=== PATIENT | female | born 1955 | race Caucasian/White ===

== ENCOUNTER 2017-12-10 18:41 | Emergency (ER) | payer OTHER ==
[2017-12-10 18:46] VITALS: TEMP 98.6; BMI 21.6
--- NOTE | 2017-12-10 20:02 | PDOC ---
History of Present Illness - General History Source: Patient Exam Limitations: No Limitations - History of Present Illness Initial Comments: 12/10/17 20:04 The patient is a 62 year old female with a significant past medical history of HTN, HLD, and asthma who presents to the ED with diarrhea, bloody stool, and abdominal pain. The patient reports multiple episodes of dark colored watery stool and nonbilious vomiting 3 days ago. She states her diarrhea and vomiting is now resolved. She reports intermittent generalized lower quadrant pain and blood in her stool since yesterday. She states she noticed bright red blood secondary to wiping. Patient also reports multiple episodes of small hard stool since yesterday. Denies fever or chills. Denies chest pain or shortness of breath. Denies dysuria or change in urinary output. Denies any other symptoms. PCP: Dr. Medrano <Misty Veliz - Last Filed: 12/11/17 01:10> <Juanita Rust - Last Filed: 12/11/17 01:47> - General Chief Complaint: Pain, Acute Stated Complaint: VOMITING/DIARRHEA Time Seen by Provider: 12/10/17 18:55 Past History <Misty Veliz - Last Filed: 12/11/17 01:10> - Past Medical History COPD: No HTN: Yes Hypercholesterolemia: Yes - Suicide/Smoking/Psychosocial Hx Smoking History: Never smoked Have you smoked in the past 12 months: No Information on smoking cessation initiated: No Hx Alcohol Use: No Drug/Substance Use Hx: No Substance Use Type: None <Juanita Rust - Last Filed: 12/11/17 01:47> - Past Medical History Allergies/Adverse Reactions: Allergies Allergy/AdvReac Type Severity Reaction Status Date / Time No Known Allergies Allergy Verified 12/10/17 18:47 Home Medications: Ambulatory Orders Levofloxacin [Levaquin -] 500 mg PO DAILY #7 tablet 12/11/17 Metronidazole [Flagyl -] 250 mg PO TID #21 tablet 12/11/17 Review of Systems - Review of Systems Able to Perform ROS?: Yes Comments:: 12/10/17 20:05 CONSTITUTIONAL: Absent: fever, chills, diaphoresis, generalized weakness, malaise, loss of appetite HEENT: Absent: rhinorrhea, nasal congestion, throat pain, throat swelling, difficulty swallowing, mouth swelling, ear pain, eye pain, visual Changes CARDIOVASCULAR: Absent: chest pain, syncope, palpitations, irregular heart rate, lightheadedness , peripheral edema RESPIRATORY: Absent: cough, shortness of breath, dyspnea with exertion, orthopnea, wheezing, stridor, hemoptysis GASTROINTESTINAL: + abdominal pain, diarrhea, vomiting, blood in stool Absent: abdominal distension, constipation GENITOURINARY: Absent: dysuria, frequency, urgency, hesitancy, hematuria, flank pain, genital pain MUSCULOSKELETAL: Absent: myalgia, arthralgia, joint swelling SKIN: Absent: rash, itching, pallor HEMATOLOGIC/IMMUNOLOGIC: Absent: easy bleeding, easy bruising, lymphadenopathy, frequent infections ENDOCRINE: Absent: unexplained weight gain, unexplained weight loss, heat intolerance, cold intolerance NEUROLOGIC: Absent: headache, focal weakness or paresthesias, dizziness, unsteady gait, seizure, mental status changes, bladder or bowel incontinence PSYCHIATRIC: Absent: anxiety, depression, suicidal or homicidal ideation, hallucinations. All Other Systems: Reviewed and Negative <Misty Veliz - Last Filed: 12/11/17 01:10> *Physical Exam - Vital Signs Last Vital Signs Temp Pulse Resp BP Pulse Ox 98.6 F 100 H 20 134/77 98 12/10/17 18:43 12/10/17 18:43 12/10/17 18:43 12/10/17 18:43 12/10/17 18:43 - Physical Exam Comments: 12/10/17 20:05 GENERAL: Well developed, well nourished. Awake and alert. No acute distress. HEENT: Normocephalic, atraumatic. PERRLA, EOMI. No conjunctival pallor. Sclera are non- icteric. Moist mucous membranes. Oropharynx is clear. NECK: Supple. Full ROM. No JVD. Carotid pulses 2+ and symmetric, without bruits. No thyromegaly. NCo lymphadenopathy. CARDIOVASCULAR: Regular rate and rhythm. No murmurs, rubs, or gallops. Distal pulses are 2+ and symmetric. PULMONARY: No evidence of respiratory distress. Lungs clear to auscultation bilaterally. No wheezing, rales or rhonchi. ABDOMINAL: Soft. Non-tender. Non-distended. No rebound or guarding. No organomegaly. Normoactive bowel sounds. RECTAL: + blood per rectum MUSCULOSKELETAL Normal range of motion at all joints. No bony deformities or tenderness. No CVA tenderness. EXTREMITIES: No cyanosis. No clubbing. No edema. No calf tenderness. SKIN: Warm and dry. Normal capillary refill. No rashes. No jaundice. NEUROLOGICAL: Alert, awake, appropriate. Cranial nerves 2-12 intact. No deficits to light touch and temperature in face, upper extremities and lower extremities. No motor deficits in the in face, upper extremities and lower extremities. Normoreflexic in the upper and lower extremities. Normal speech. Toes are down- going bilaterally. Gait is normal without ataxia. PSYCHIATRIC: Cooperative. Good eye contact. Appropriate mood and affect. <Misty Veliz - Last Filed: 12/11/17 01:10> - Vital Signs Last Vital Signs Temp Pulse Resp BP Pulse Ox 98.6 F 100 H 20 134/77 98 12/10/17 18:43 12/10/17 18:43 12/10/17 18:43 12/10/17 18:43 12/10/17 18:43 <Juanita Rust - Last Filed: 12/11/17 01:47> ED Treatment Course - LABORATORY CBC & Chemistry Diagram: 12/10/17 20:13 12/10/17 20:13 - RADIOLOGY Radiograph Interpretation: 12/11/17 01:10 EXAM: CT ABDOMEN AND PELVIS WITH CONTRAST IMPRESSION: Moderately thickened transverse colon, consistent with colitis. No bowel obstruction, free fluid or free air. Normal appendix. Few diverticula colon. Unremarkable pancreas and gallbladder. Small cystic foci bilateral kidneys. Small umbilical hernia containing fat and a small calcification. Small hiatal hernia. Reported by: Imaging zoning engineer <Misty Veliz - Last Filed: 12/11/17 01:10> - LABORATORY CBC & Chemistry Diagram: 12/10/17 20:13 12/10/17 20:13 <Juanita Rust - Last Filed: 12/11/17 01:47> Medical Decision Making - Medical Decision Making 12/11/17 01:44 62 yo female you reported lower abdominal cramping today with some loose stools that had some blood on them no fever,no chills -soft abd on exam ct scan showed some transverse colon inflammation c/w colitis Discussed with patient and her family that we would try po antibiotics and she should followup with the film projector operator -I explained that she should return for any worsening symptoms or if she developed any fever 12/11/17 01:47 -stool hemoccult read as negative <Juanita Rust - Last Filed: 12/11/17 01:47> *DC/Admit/Observation/Transfer - Attestations Scribe Attestion: 12/10/17 20:05 Documentation prepared by Misty Veliz, acting as medical observer for Juanita Rust MD <Misty Veliz - Last Filed: 12/11/17 01:10> <Juanita Rust - Last Filed: 12/11/17 01:47> Diagnosis at time of Disposition: Colitis - Discharge Dispostion Condition at time of disposition: Stable - Prescriptions Prescriptions: Levofloxacin [Levaquin -] 500 mg PO DAILY #7 tablet Metronidazole [Flagyl -] 250 mg PO TID #21 tablet - Referrals Referrals: Daniela Forrest MD [Primary Care Provider] - - Patient Instructions Printed Discharge Instructions: DI for Colitis Additional Instructions: Please go to [facility] on [facility] to slat pickler your prescriptions Follow up with your regular physician Return for fever,worsening symptoms - Post Discharge Activity
[2017-12-10 20:25] LABS: BASO % 0.8 % (0-2.0); EOS % 3.4 % (0-4.5); HEMATOCRIT 37.9 % (32.4-45.2); HEMOGLOBIN 12.7 GM/dL (10.7-15.3); LYMPH % 18.1 % (8-40); MCH 27.2 pg (25.7-33.7); MCHC 33.5 g/dl (32.0-36.0); MEAN CELL VOLUME 81.1 fl (80-96); MEAN PLT VOLUME 9.9 fl (7.5-11.1); MONO % 5.9 % (3.8-10.2); NEUT % 71.8 % (42.8-82.8); PLATELET COUNT 233 K/MM3 (134-434); RBC 4.67 M/mm3 (3.60-5.2); RDW 15.4 % (11.6-15.6); RETICULOCYTES 1.17 % (0.5-1.5); WHITE BLOOD COUNT 11.5 K/mm3 (4.0-10.0)
[2017-12-10 20:34] LABS: INR 1.04 (0.82-1.09); PROTHROMBIN TIME (PATIENT) 11.8 SEC (9.98-11.88)
[2017-12-10 20:47] LABS: ALBUMIN 3.3 g/dl (3.4-5.0); ALK PHOS 70 U/L (45-117); ANION GAP 9 (8-16); BILIRUBIN,TOTAL 0.8 mg/dL (0.2-1.0); BLOOD UREA NITROGEN 15 mg/dL (7-18); CALCIUM 8.1 mg/dL (8.5-10.1); CHLORIDE 102 mmol/L (98-107); CO2 28 mmol/L (21-32); CREATININE 0.8 mg/dL (0.55-1.02); GLUCOSE,RANDOM 87 mg/dL (74-106); SGPT/ALT 24 U/L (12-78); SODIUM 139 mmol/L (136-145); TOT PROT 7.2 g/dl (6.4-8.2)
[2017-12-10 20:48] LABS: POTASSIUM 4.5 mmol/L (3.5-5.1); SGOT/AST 47 U/L (15-37)
[2017-12-11] MEDS ORDERED: LEVOFLOXACIN 500 MG IVPB 500 MG/100 ML BAG IVPB ONE ×2 (01:12→01:57)
[2017-12-11] MEDS ORDERED: metroNIDAZOLE 500 MG TABLET PO ONE (01:15)
[2017-12-11] MEDS ORDERED: DIPHENOXYLATE 2.5/ATROPINE.025 1 COMBO TABLET PO ONE (01:23)
[2017-12-11] MEDS ORDERED: DIPHENOXYLATE 2.5/ATROPINE.025 1 COMBO TABLET ONE (01:56)
[2017-12-11] MEDS ORDERED: metroNIDAZOLE 250 MG TABLET ONE (01:57)
[2017-12-11 03:10] VITALS: BP 119/85; PULSE 86
== END 2017-12-11 03:11 | disposition home or self-care (01) ==
LOC: JER 18:41
DX: K52.9 Noninfective gastroenteritis and colitis, unspecified (principal); I10 Essential (primary) hypertension; E78.00 Pure hypercholesterolemia, unspecified
CPT/HCPCS: 36415; 74177-TC; 80053; 82272; 85025; 85044; 85610; 86900; 96365; 99282-25

== ENCOUNTER 2018-03-14 13:18 | Inpatient (IN) | payer OTHER ==
[2018-03-12 17:42] VITALS: BMI 20.5
[2018-03-14] MEDS ORDERED: ERTAPENEM SODIUM 1 GM in SODIUM CHLORIDE 50 ML IVPB ONE (14:09)
--- NOTE | 2018-03-14 14:14 | HP ---
History & Physical Update - History History: No Change - Physical Physical: No Change - Assessment Assessment: No Change - Plan Plan: No Change (Full H&P in chart dated 03/13/2018 from PMD, Dr. Velasquez )
[2018-03-14] MEDS ORDERED: LIDOCAINE HCL/PF 2% SDV 5ML VIAL ONE (15:22)
[2018-03-14] MEDS ORDERED: CEFOXITIN SODIUM 1 GM IVPB ONE ×2 (15:22→15:24)
[2018-03-14] MEDS ORDERED: fentaNYL CITRATE 250 MCG/5 ML VIAL ONE (15:23)
[2018-03-14] MEDS ORDERED: ROCURONIUM BROMIDE 50 MG/5 ML VIAL ONE ×2 (15:24→17:12)
[2018-03-14] MEDS ORDERED: CEFOXITIN SODIUM 2 GM in DEXTROSE 5%-WATER 100 ML IVPB ONE (15:30)
[2018-03-14] MEDS ORDERED: KETOROLAC TROMETHAMINE 30 MG/1 ML VIAL ONE (15:34)
[2018-03-14] MEDS ORDERED: DEXAMETHASONE SOD PHOSPHATE 4 MG/1 ML VIAL ONE (15:34)
[2018-03-14] MEDS ORDERED: MIDAZOLAM HCL 2 MG/2 ML SINGLE DOSE VIAL ONE (15:36)
[2018-03-14] MEDS ORDERED: cefOXitin SODIUM 2 GM VIAL (RESTRICTED TO ID) IVPB ONE (15:37)
[2018-03-14] MEDS ORDERED: BUPIVACAINE HCL/PF 0.5% (5MG/ML) 10 ML VIAL ONE (15:59)
[2018-03-14] MEDS ORDERED: NEOSTIGMINE METHYLSULFATE 0.5 MG/ML - 10 ML MDV ONE (18:48)
[2018-03-14] MEDS ORDERED: GLYCOPYRROLATE 0.2 MG/1 ML VIAL ONE (18:49)
--- NOTE | 2018-03-14 18:57 | OP ---
Operative Note - Note: Operative Date: 03/14/18 Pre-Operative Diagnosis: colon cancer Operation: left colon resection robotic converted to laparoscopic assisted Findings: spleenic flexure tumor Post-Operative Diagnosis: Same as Pre-op Surgeon: Daniel Cervantes Anesthesia: General Estimated Blood Loss (mls): 50
[2018-03-14] MEDS ORDERED: POVIDONE-IODINE OINTMENT 10% - 28.4 GM TUBE ONE (18:58)
--- NOTE | 2018-03-14 19:11 | SURG ---
Surgery Ux Architect Note Ux Architect: Seth Arora PA-C Date of Service: 03/14/18 Diagnosis: Colon cancer Procedure: Robotic converted to laparoscopic assisted left colon resection I was present for the entirety of the operative procedure. For further detail, please refer to operative report. Visit type - Case Type Case Type: Scheduled Admission - New patient This patient is new to me today: Yes Date on this admission: 03/14/18
[2018-03-14] MEDS: LACTATED RINGERS SOLUTION 1,000 ML IV SCH (19:12)
[2018-03-14] MEDS ORDERED: ACETAMINOPHEN 1000 MG/100 ML VIAL (NON FORMULARY) IVPB PRN (19:19)
[2018-03-14] MEDS ORDERED: ONDANSETRON 4 MG/2 ML VIAL IVPUSH PRN (19:20)
[2018-03-14] MEDS ORDERED: ACETAMINOPHEN 1000 MG/100 ML VIAL (NON FORMULARY) IVPB ONE ×2 (19:21→19:30)
[2018-03-14] MEDS ORDERED: HYDROmorphone *PCA* 10MG/50ML DISP.SYRIN PCA ONE (20:33)
[2018-03-14] MEDS: HYDROmorphone *PCA* 10MG/50ML DISP.SYRIN PCA SCH (20:49)
[2018-03-14 21:00] LABS: HEMATOCRIT 39.6 % (32.4-45.2); HEMOGLOBIN 13.5 GM/dL (10.7-15.3); MCH 28.1 pg (25.7-33.7); MCHC 34.2 g/dl (32.0-36.0); MEAN CELL VOLUME 82.1 fl (80-96); MEAN PLT VOLUME 9.8 fl (7.5-11.1); PLATELET COUNT 178 K/MM3 (134-434); RBC 4.83 M/mm3 (3.60-5.2); RDW 15.3 % (11.6-15.6); WHITE BLOOD COUNT 10.7 K/mm3 (4.0-10.0)
[2018-03-14 21:38] LABS: ANION GAP 8 (8-16); BLOOD UREA NITROGEN 11 mg/dL (7-18); CALCIUM 8.3 mg/dL (8.5-10.1); CHLORIDE 104 mmol/L (98-107); CO2 26 mmol/L (21-32); CREATININE 0.8 mg/dL (0.55-1.02); GLUCOSE,RANDOM 123 mg/dL (74-106); POTASSIUM 3.3 mmol/L (3.5-5.1); SODIUM 138 mmol/L (136-145)
[2018-03-14] MEDS ORDERED: HEPARIN NA (PORCINE) 5,000 UNITS/ML 1ML VIAL SQ SCH (22:00)
[2018-03-14] MEDS ORDERED: POTASSIUM CHLORIDE TABS 20 MEQ TABLET.ER (FP) PO ONE (22:45)
[2018-03-14] MEDS: HEPARIN NA (PORCINE) 5,000 UNITS/ML 1ML VIAL SQ SCH (22:57)
[2018-03-15] MEDS: HYDROmorphone *PCA* 10MG/50ML DISP.SYRIN PCA SCH (00:17)
[2018-03-15] MEDS ORDERED: ceFAZolin SODIUM 1 GM VIAL ONE ×2 (02:55→09:28)
[2018-03-15] MEDS ORDERED: DEXTROSE 5%-WATER - 50 ML IVPB ONE ×2 (02:55→09:28)
[2018-03-15] MEDS: CEFAZOLIN 1 GM in DEXTROSE 5%-WATER - 50 ML IVPB SCH ×2 (03:00→09:32)
[2018-03-15] MEDS: HEPARIN NA (PORCINE) 5,000 UNITS/ML 1ML VIAL SQ SCH ×3 (06:00→23:34)
[2018-03-15 07:21] LABS: HEMATOCRIT 35.4 % (32.4-45.2); HEMOGLOBIN 12.5 GM/dL (10.7-15.3); MCH 28.3 pg (25.7-33.7); MCHC 35.2 g/dl (32.0-36.0); MEAN CELL VOLUME 80.4 fl (80-96); MEAN PLT VOLUME 8.8 fl (7.5-11.1); PLATELET COUNT 169 K/MM3 (134-434); RBC 4.41 M/mm3 (3.60-5.2); RDW 15.3 % (11.6-15.6)
[2018-03-15 07:51] LABS: ALBUMIN 3.2 g/dl (3.4-5.0); ALK PHOS 51 U/L (45-117); ANION GAP 11 (8-16); BILIRUBIN,TOTAL 0.9 mg/dL (0.2-1.0); BLOOD UREA NITROGEN 10 mg/dL (7-18); CALCIUM 8.2 mg/dL (8.5-10.1); CHLORIDE 101 mmol/L (98-107); CO2 26 mmol/L (21-32); CREATININE 0.7 mg/dL (0.55-1.02); GLUCOSE,RANDOM 103 mg/dL (74-106); SGOT/AST 22 U/L (15-37); SGPT/ALT 17 U/L (12-78); SODIUM 138 mmol/L (136-145)
--- NOTE | 2018-03-15 09:00 | PN ---
Progress Note (short form) - Note Progress Note: POD #1 No acute events per RN notes since surgery. Alert. C/o mild incisional tednerness. Adequate pain control via PIPE FITTER WELDING. Denies n/v/f/c, CP or SOB. Last Vital Signs Temp Pulse Resp BP Pulse Ox 98.9 F 73 20 109/68 99 18 06:00 03/15/18 06:00 03/15/18 06:00 03/15/18 06:00 03/14/18 23:00 CBC, BMP 03/15/18 06:20 03/15/18 06:20 Gen: nad ABD: All surgical ports c/d/i. Midline incision (supraumbilical) c/d/i with galdino : amezquita to gravity (clear) LE: soft. 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
[2018-03-15] MEDS ORDERED: POTASSIUM CHLORIDE 20 MEQ PREMIX IVPB 100 ML IVPB ONE (09:04)
[2018-03-15] MEDS ORDERED: POTASSIUM CHLORIDE 20 MEQ in SODIUM CHLORIDE 250 ML IVPB ONE (09:30)
[2018-03-15] MEDS: LACTATED RINGERS SOLUTION 1,000 ML IV SCH (09:37)
[2018-03-15 11:34] LABS: ANION GAP 7 (8-16); BLOOD UREA NITROGEN 10 mg/dL (7-18); CALCIUM 8.4 mg/dL (8.5-10.1); CHLORIDE 101 mmol/L (98-107); CO2 28 mmol/L (21-32); CREATININE 0.7 mg/dL (0.55-1.02); GLUCOSE,RANDOM 105 mg/dL (74-106); POTASSIUM 3.2 mmol/L (3.5-5.1); SODIUM 136 mmol/L (136-145)
--- NOTE | 2018-03-15 11:34 | PN ---
Progress Note, Physician Chief Complaint: Pt. sitting comfortably in chair with family around. - Current Medication List Current Medications: Active Medications Heparin Sodium (Porcine) (Heparin -) 5,000 unit SQ TID [facility] Last Admin: 03/15/18 06:00 Dose: 5,000 unit Hydromorphone HCl (Dilaudid Pick Up Driver -) 10 mg RN DOCUMENT IMPROVEMENT SPECIALIST RN DOCUMENT IMPROVEMENT SPECIALIST [facility] PRN Reason: Protocol Stop: 03/21/18 19:21 Last Admin: 03/15/18 00:17 Dose: 10 mg Lactated Ringer's (Lactated Ringers Solution) 1,000 mls @ 75 mls/hr IV ASDIR [facility] Last Admin: 03/15/18 09:37 Dose: 75 mls/hr Potassium Chloride 10 meq/ (Sodium Chloride) 105 mls @ 105 mls/hr IVPB Q60M [facility] Stop: 03/15/18 14:29 - Objective Vital Signs: Vital Signs Temperature 98.9 F 03/15/18 06:00 Pulse Rate 73 03/15/18 06:00 Respiratory Rate 20 03/15/18 06:00 Blood Pressure 109/68 03/15/18 06:00 O2 Sat by Pulse Oximetry (%) 99 03/14/18 23:00 Constitutional: Yes: Well Nourished, No Distress, Calm Musculoskeletal: Yes: WNL Neurological: Yes: WNL, Alert, Oriented ...Motor Strength: WNL Labs: CBC, BMP 03/15/18 06:20 Assessment/Plan POD#1 s/p robotic lower anterior resection under GA. Doing well. D/C from anesthesia care.
[2018-03-15] MEDS: POTASSIUM CHLORIDE 10 MEQ in SODIUM CHLORIDE 100 ML IVPB SCH ×3 (11:51→14:30)
--- NOTE | 2018-03-15 18:30 | PN ---
Progress Note, Physician History of Present Illness: s/p lap left colon resection POD#1 Feeling well tolerating ice chips out bed - Current Medication List Current Medications: Active Medications Heparin Sodium (Porcine) (Heparin -) 5,000 unit SQ TID [facility] Last Admin: 03/15/18 14:31 Dose: 5,000 unit Hydromorphone HCl (Dilaudid Finish Mender -) 10 mg JELLY MAKER JELLY MAKER [facility] PRN Reason: Protocol Stop: 03/21/18 19:21 Last Admin: 03/15/18 00:17 Dose: 10 mg Lactated Ringer's (Lactated Ringers Solution) 1,000 mls @ 75 mls/hr IV ASDIR [facility] Last Admin: 03/15/18 09:37 Dose: 75 mls/hr - Objective Vital Signs: Vital Signs Temperature 98.2 F 03/15/18 14:00 Pulse Rate 81 03/15/18 14:00 Respiratory Rate 22 03/15/18 14:00 Blood Pressure 113/59 03/15/18 14:00 O2 Sat by Pulse Oximetry (%) 99 03/15/18 08:00 Labs: CBC, BMP 03/15/18 06:20 03/15/18 10:51 Assessment/Plan s/p colon resection feeling well minimal pain Clear liquids tomorrow
[2018-03-16] MEDS: HEPARIN NA (PORCINE) 5,000 UNITS/ML 1ML VIAL SQ SCH ×3 (05:55→21:49)
[2018-03-16 08:52] LABS: CHLORIDE 101 mmol/L (98-107); POTASSIUM 3.3 mmol/L (3.5-5.1); SODIUM 138 mmol/L (136-145)
[2018-03-16 09:00] LABS: ANION GAP 13 (8-16); BLOOD UREA NITROGEN 11 mg/dL (7-18); CALCIUM 8.6 mg/dL (8.5-10.1); CO2 24 mmol/L (21-32); CREATININE 0.5 mg/dL (0.55-1.02); GLUCOSE,RANDOM 64 mg/dL (74-106)
[2018-03-16] MEDS ORDERED: POTASSIUM CHLORIDE 30 MEQ in SODIUM CHLORIDE 285 ML IVPB ONE (10:00)
[2018-03-16] MEDS ORDERED: POTASSIUM CHLORIDE 20 MEQ in SODIUM CHLORIDE 250 ML IVPB ONE (10:30)
[2018-03-16] MEDS ORDERED: POTASSIUM CHLORIDE 10 MEQ in SODIUM CHLORIDE 100 ML IVPB ONE (12:30)
--- NOTE | 2018-03-16 16:00 | PN ---
Progress Note (short form) - Note Progress Note: POD#2 Pt without any nausea or emesis. No bowel function. Pain tolerated well on MILK INSPECTOR. Vital Signs Period Temp Pulse Resp BP Sys/Gilman Pulse Ox Last 24 Hr 98.5 F-99.6 F 88-100 20-20 113-142/67-93 97-99 GEN;A&0x3, NAD ABD: soft, non-distended, inc tenderness. Inc c/d/i with galdino. LE: [place] in place. no calf tenderness or swelling b/l CBC, BMP 18 06:20 /04/18 08:10 A/P: 62 yo female s/p left colon resection, lap converted to open D/w Dr. Castillo, will begin clears continue oob and ambulate K3.3, repleted today potassium with riders x3 chem in the am discontinue MILK INSPECTOR, begin oral pain medications
[2018-03-16] MEDS ORDERED: oxyCODONE HCL 5 MG TABLET PO PRN (16:05)
[2018-03-16] MEDS ORDERED: ACETAMINOPHEN 325 MG TABLET (FP) PO PRN (16:06)
--- NOTE | 2018-03-16 17:12 | PN ---
Progress Note, Physician History of Present Illness: feeling better POD#2 denies flatus or bms - Current Medication List Current Medications: Active Medications Acetaminophen (Tylenol -) 650 mg PO Q6H PRN PRN Reason: PAIN LEVEL 1 - 3 Heparin Sodium (Porcine) (Heparin -) 5,000 unit SQ TID [facility] Last Admin: 03/16/18 14:41 Dose: 5,000 unit Oxycodone HCl (Roxicodone -) 5 mg PO Q6H PRN PRN Reason: PAIN LEVEL 1-5 Oxycodone HCl (Roxicodone -) 10 mg PO Q6H PRN PRN Reason: PAIN LEVEL 6-10 - Objective Vital Signs: Vital Signs Temperature 99.0 F 03/16/18 15:33 Pulse Rate 92 H 03/16/18 15:33 Respiratory Rate 20 03/16/18 15:33 Blood Pressure 137/93 03/16/18 15:33 O2 Sat by Pulse Oximetry (%) 99 03/16/18 09:00 Labs: CBC, BMP 03/15/18 06:20 03/16/18 08:10 Problem List - Problems (1) Colon cancer Code(s): C18.9 - MALIGNANT NEOPLASM OF COLON, UNSPECIFIED Qualifiers: Colon location: splenic flexure Qualified Code(s): 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
[2018-03-16] MEDS: oxyCODONE HCL 5 MG TABLET PO PRN (21:50)
[2018-03-17] MEDS: HEPARIN NA (PORCINE) 5,000 UNITS/ML 1ML VIAL SQ SCH ×3 (06:32→21:41)
[2018-03-17 08:19] LABS: BASO % 0.9 % (0-2.0); EOS % 8.2 % (0-4.5); HEMATOCRIT 29.7 % (32.4-45.2); HEMOGLOBIN 10.5 GM/dL (10.7-15.3); LYMPH % 19.7 % (8-40); MCH 28.9 pg (25.7-33.7); MCHC 35.4 g/dl (32.0-36.0); MEAN CELL VOLUME 81.6 fl (80-96); MEAN PLT VOLUME 9.2 fl (7.5-11.1); MONO % 5.3 % (3.8-10.2); NEUT % 65.9 % (42.8-82.8); PLATELET COUNT 162 K/MM3 (134-434); RBC 3.64 M/mm3 (3.60-5.2); RDW 15.4 % (11.6-15.6); WHITE BLOOD COUNT 6.1 K/mm3 (4.0-10.0)
[2018-03-17 08:41] LABS: ALBUMIN 2.9 g/dl (3.4-5.0); ALK PHOS 45 U/L (45-117); ANION GAP 8 (8-16); BLOOD UREA NITROGEN 5 mg/dL (7-18); CALCIUM 8.2 mg/dL (8.5-10.1); CHLORIDE 101 mmol/L (98-107); CO2 29 mmol/L (21-32); CREATININE 0.4 mg/dL (0.55-1.02); GLUCOSE,RANDOM 86 mg/dL (74-106); POTASSIUM 3.3 mmol/L (3.5-5.1); SGOT/AST 15 U/L (15-37); SGPT/ALT 13 U/L (12-78); SODIUM 138 mmol/L (136-145); TOT PROT 5.9 g/dl (6.4-8.2)
--- NOTE | 2018-03-17 12:30 | PN ---
Progress Note, Physician History of Present Illness: s/p left colon resection POD3 feeling well , less pain no bowel activity - Current Medication List Current Medications: Active Medications Acetaminophen (Tylenol -) 650 mg PO Q6H PRN PRN Reason: PAIN LEVEL 1 - 3 Heparin Sodium (Porcine) (Heparin -) 5,000 unit SQ TID [facility] Last Admin: 03/17/18 06:32 Dose: 5,000 unit Oxycodone HCl (Roxicodone -) 5 mg PO Q6H PRN PRN Reason: PAIN LEVEL 1-5 Last Admin: 03/16/18 21:50 Dose: 5 mg Oxycodone HCl (Roxicodone -) 10 mg PO Q6H PRN PRN Reason: PAIN LEVEL 6-10 Potassium Chloride (K-Dur -) 20 meq PO BID [facility] - Objective Vital Signs: Vital Signs Temperature 98.1 F 03/17/18 08:00 Pulse Rate 103 H 03/17/18 08:00 Respiratory Rate 20 03/17/18 08:00 Blood Pressure 110/62 03/17/18 08:00 O2 Sat by Pulse Oximetry (%) 99 03/17/18 08:00 Musculoskeletal: Yes: Other (blisters and erythema in the gluteal region consisitent with 1st and2nd degree decubitus ulceration) Labs: CBC, BMP 03/17/18 07:00 03/17/18 07:00 Problem List - Problems (1) Colon cancer Code(s): C18.9 - MALIGNANT NEOPLASM OF COLON, UNSPECIFIED Qualifiers: Colon location: splenic flexure Qualified Code(s): 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
[2018-03-17] MEDS: POTASSIUM CHLORIDE TABS 20 MEQ TABLET.ER (FP) PO SCH (21:41)
[2018-03-17] MEDS: oxyCODONE HCL 5 MG TABLET PO PRN (21:44)
[2018-03-18] MEDS: HEPARIN NA (PORCINE) 5,000 UNITS/ML 1ML VIAL SQ SCH ×3 (06:29→21:19)
[2018-03-18] MEDS: oxyCODONE HCL 5 MG TABLET PO PRN ×2 (06:30→14:09)
[2018-03-18] MEDS: POTASSIUM CHLORIDE TABS 20 MEQ TABLET.ER (FP) PO SCH ×2 (09:05→21:19)
[2018-03-18 09:14] LABS: BASO % 0.7 % (0-2.0); EOS % 13.2 % (0-4.5); HEMATOCRIT 28.5 % (32.4-45.2); HEMOGLOBIN 9.9 GM/dL (10.7-15.3); LYMPH % 26.7 % (8-40); MCH 28.2 pg (25.7-33.7); MCHC 34.7 g/dl (32.0-36.0); MEAN CELL VOLUME 81.2 fl (80-96); MEAN PLT VOLUME 9.1 fl (7.5-11.1); MONO % 6.4 % (3.8-10.2); PLATELET COUNT 179 K/MM3 (134-434); RBC 3.51 M/mm3 (3.60-5.2); WHITE BLOOD COUNT 5.2 K/mm3 (4.0-10.0)
[2018-03-18 09:29] LABS: ALK PHOS 44 U/L (45-117); ANION GAP 6 (8-16); BILIRUBIN,TOTAL 0.7 mg/dL (0.2-1.0); BLOOD UREA NITROGEN 4 mg/dL (7-18); CHLORIDE 104 mmol/L (98-107); CO2 29 mmol/L (21-32); CREATININE 0.4 mg/dL (0.55-1.02); GLUCOSE,RANDOM 100 mg/dL (74-106); POTASSIUM 3.6 mmol/L (3.5-5.1); SGOT/AST 18 U/L (15-37); SGPT/ALT 14 U/L (12-78); SODIUM 139 mmol/L (136-145); TOT PROT 6.1 g/dl (6.4-8.2)
--- NOTE | 2018-03-18 10:49 | PN ---
Progress Note, Physician History of Present Illness: POD4 after left coloectomy for Ad[place] CA feeling well Reports BM and flatus - Current Medication List Current Medications: Active Medications Acetaminophen (Tylenol -) 650 mg PO Q6H PRN PRN Reason: PAIN LEVEL 1 - 3 Heparin Sodium (Porcine) (Heparin -) 5,000 unit SQ TID [facility] Last Admin: 03/18/18 06:29 Dose: 5,000 unit Oxycodone HCl (Roxicodone -) 5 mg PO Q6H PRN PRN Reason: PAIN LEVEL 1-5 Last Admin: 03/18/18 06:30 Dose: 5 mg Oxycodone HCl (Roxicodone -) 10 mg PO Q6H PRN PRN Reason: PAIN LEVEL 6-10 Potassium Chloride (K-Dur -) 20 meq PO BID [facility] Last Admin: 03/18/18 09:05 Dose: 20 meq - Objective Vital Signs: Vital Signs Temperature 97.8 F 03/18/18 06:00 Pulse Rate 80 03/18/18 06:00 Respiratory Rate 20 03/18/18 06:00 Blood Pressure 115/64 03/18/18 06:00 O2 Sat by Pulse Oximetry (%) 99 03/17/18 21:00 Labs: CBC, BMP 03/18/18 08:45 03/18/18 08:45 Problem List - Problems (1) Colon cancer Code(s): C18.9 - MALIGNANT NEOPLASM OF COLON, UNSPECIFIED Qualifiers: Colon location: splenic flexure Qualified Code(s): C18.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
--- NOTE | 2018-03-18 12:52 | OP ---
DATE OF OPERATION: 03/14/2018 PREOPERATIVE DIAGNOSIS: Left colon cancer. POSTOPERATIVE DIAGNOSIS: Left colon cancer. PROCEDURE: Robotic-assisted laparoscopic partial colectomy, left colon resection with primary anastomosis. SURGEON: Daniel Cervantes MD LABORER AMMUNITION ASSEMBLY: MICHAEL Jenkins COMPLICATIONS: None. BLEEDING: Minimal. Patient tolerated procedure well. This is a 62-year-old female, presents for elective colon resection after a colonoscopy diagnosed a tumor near the splenic flexure. Biopsy results were consistent with adenocarcinoma of the colon. The patient was taken for a laparoscopic robotic-assisted colon resection. In the operating room, she was placed in supine position in lithotomy. She underwent induction of general anesthesia without complication. She received IV antibiotics. She was prepped and draped in the usual sterile fashion. A timeout was observed and the operation was begun with insufflation with a Veress needle in the periumbilical space to a pressure of 15 mmHg. Next, a total of 4 robotic ports were placed in an oblique line across the abdomen from the left subcostal margin down to the right pelvis. The initial dissection revealed a normal rectum in the lower abdomen. The dissection was continued with mobilization of the left colon until the splenic flexure. At this point, the port placement for using the robotic technology did not allow for easy access to the splenic flexure, given the tumor was very posterior and deep in the left upper quadrant. Decision was made to convert from the da Adriana system to a standard laparoscopic approach. The robot was undocked and then the procedure was continued with mobilization of the splenic flexure, which was done using the LigaSure to liberate the transverse colon from the omentum and gastrocolic ligament. This was done until the splenic flexure was then fully mobilized off the spleen as well as the renal colic ligament was divided to release completely the left colon. At this point then, the lesion was clearly visualized by the tattoo hafsa in the splenic flexure in the posterior wall. With full mobilization then, an incision was made in the periumbilical space approximately 5 cm. The colon was delivered through this incision, and the mesentery, however, prior to incision, was divided, mostly using LigaSure. The middle colic vessel though was clearly identified at this point. A left branch was then ligated with Kerri clamps and divided and double tied with 2-0 silk ties. The colon was then divided here with an Endo CODY at the level of the transverse colon with care to make sure there was appropriate perfusion to the proximal staple line. The transverse colon was then brought to the sigmoid colon, where a [id number] anastomosis was done using Endo CODY stapler, which was fired twice to guarantee a nice anastomosis and the common enterotomy was also closed with Endo CODY stapler, which was used to then also divide the specimen at the distal margin. The anastomosis resection continuity was completed. Lembert sutures of 3-0 silk were placed to oversew the staple line and the mesenteric site was closed. The peritoneal cavity was irrigated and suctioned. A final check for hemostasis was performed. Then wound was closed with number 1 Vicryl sutures in interrupted fashion. The skin was closed with galdino. The port sites were all closed with a 4-0 Monocryl. Sterile dressing was applied and then the patient was returned to the recovery room awake, alert, in stable condition, tolerated procedure well. Berna [id number]
[2018-03-19] MEDS: HEPARIN NA (PORCINE) 5,000 UNITS/ML 1ML VIAL SQ SCH (05:59)
--- NOTE | 2018-03-19 08:27 | DS ---
Physical Exam: SUBJECTIVE: Patient seen and examined. POD #4. Doing very well. Sitting at bedside eating her breakfast without complaint. She's been oob and ambulating unassisted/without difficulty. Voiding spontaneously. Denies n/v/f/c, CP, SOB. OBJECTIVE: Vital Signs Temperature 98.5 F 03/19/18 07:17 Pulse Rate 78 03/19/18 07:17 Respiratory Rate 20 03/19/18 07:17 Blood Pressure 125/74 03/19/18 07:17 O2 Sat by Pulse Oximetry (%) 99 03/18/18 20:24 PHYSICAL EXAM GENERAL: The patient is awake, alert, and fully oriented, in no acute distress. HEAD: Normal with no signs of trauma. EYES: PERRL, extraocular movements intact, sclera anicteric, conjunctiva clear. NECK: Trachea midline, full range of motion, supple. LUNGS: CTA bilat HEART: RRR ABDOMEN: Soft, surgical ports intact. Midline incision (spraumbilical) galdino intact. EXTREMITIES: 2+ pulses, warm, well-perfused, no edema. PSYCH: Normal mood, normal affect. SKIN: Gluteal decubitus ulcers --> clean LABS CBC,CMP WBC 5.2 K/mm3 (4.0-10.0) 03/18/18 08:45 RBC 3.51 M/mm3 (3.60-5.2) L 03/18/18 08:45 Hgb 9.9 GM/dL (10.7-15.3) L 03/18/18 08:45 Hct 28.5 % (32.4-45.2) L 03/18/18 08:45 MCV 81.2 fl (80-96) 03/18/18 08:45 MCH 28.2 pg (25.7-33.7) 03/18/18 08:45 MCHC 34.7 g/dl (32.0-36.0) 03/18/18 08:45 RDW 15.0 % (11.6-15.6) 03/18/18 08:45 Plt Count 179 K/MM3 (134-434) 03/18/18 08:45 MPV 9.1 fl (7.5-11.1) 03/18/18 08:45 Neutrophils % 53.0 % (42.8-82.8) 03/18/18 08:45 Lymphocytes % 26.7 % (8-40) D 03/18/18 08:45 Monocytes % 6.4 % (3.8-10.2) 03/18/18 08:45 Eosinophils % 13.2 % (0-4.5) H 03/18/18 08:45 Basophils % 0.7 % (0-2.0) 03/18/18 08:45 Sodium 139 mmol/L (136-145) 03/18/18 08:45 Potassium 3.6 mmol/L (3.5-5.1) 03/18/18 08:45 Chloride 104 mmol/L (98-107) 03/18/18 08:45 Carbon Dioxide 29 mmol/L (21-32) 03/18/18 08:45 Anion Gap 6 (8-16) L 03/18/18 08:45 BUN 4 mg/dL (7-18) L 03/18/18 08:45 Creatinine 0.4 mg/dL (0.55-1.02) L 03/18/18 08:45 Creat Clearance w eGFR > 60 (>60) 03/18/18 08:45 Random Glucose 100 mg/dL (74-106) 03/18/18 08:45 Calcium 8.0 mg/dL (8.5-10.1) L 03/18/18 08:45 Total Bilirubin 0.7 mg/dL (0.2-1.0) D 03/18/18 08:45 AST 18 U/L (15-37) 03/18/18 08:45 ALT 14 U/L (12-78) 03/18/18 08:45 Alkaline Phosphatase 44 U/L (45-117) L 03/18/18 08:45 Total Protein 6.1 g/dl (6.4-8.2) L 03/18/18 08:45 Albumin 3.0 g/dl (3.4-5.0) L 03/18/18 08:45 HOSPITAL COURSE: Date of Admission:03/14/18 Date of Discharge: 03/19/18 s/p left colon resection robotic converted to laparoscopic assisted. She was admitted to the Med-Surg Unit from the PACU. Patient remained NPO until her bowel function resumed. Once it did, she was started on a clear liquid diet and advanced as tolerated. Narcotic and non-narcotic pain management control was achieved with an oral and IV approach. Natalie-operative IV ABX were administered. DVT prophylaxis was achieved with SCDs and early ambulation. The patient ambulated with Physical Therapy and no services were recommended upon discharge. [place] SHIFT COORDINATOR checked prior to escribe narcotic for home pain management. Note that pateint has developed sacral decub stage 1. Explained to her importance of offloading all pressure sensitive areas by frequently changing position. The discharge instructions and an oral pain management plan were reviewed with the patient. All questions answered. Above plan discussed with Dr. Cervantes and agreed. Minutes to complete discharge: 15 Visit type - Case Type Case Type: Scheduled Admission
[2018-03-19 09:06] VITALS: BP 127/71; PULSE 96; TEMP 98.3
[2018-03-19] MEDS: POTASSIUM CHLORIDE TABS 20 MEQ TABLET.ER (FP) PO SCH (10:16)
--- NOTE | 2018-03-19 16:22 | PATH ---
Surgical Pathology Report Patient Name: CARLITOS MERCER [facility]. Rec. #: [id number] /Age/Gender: 1955 (Age: 62) / F Account: [id number] Location: [address] [place] [address] Taken: 03/14/2018 Received: 03/15/2018 Reported: 03/19/2018 Physicians: Daniel Cervantes M.D. Specimen(s) Received LEFT COLON SPLENIC FLEXURE Clinical History Malignant neoplasm of sigmoid colon Final Diagnosis LEFT COLON, SPLENIC FLEXURE, RESECTION: ADENOCARCINOMA, MODERATELY DIFFERENTIATED. MARGINS ARE NEGATIVE FOR TUMOR. THE DISTANCE FROM TUMOR TO THE MESENTERIC MARGIN MEASURES 2CM, TO THE CLOSEST UNDESIGNATED MARGIN (PROXIMAL OR DISTAL OF RESECTION) IS 5.5CM. PERINEURAL INVASION IS PRESENT. LYMPHOVASCULAR INVASION IS NOT IDENTIFIED. TUMOR INVADES THROUGH THE MUSCULARIS PROPRIA INTO PERICOLORECTAL TISSUES (pT3). FOUR OUT OF THIERTEEN LYMPH NODES, POSITIVE FOR METASTATIC CARCINOMA (pN2). PATHOLOGIC STAGE (pTNM): pT3 pN2. Interdepartmental case review with consensus on diagnosis. This case was discussed with Dr. Cervantes on March 19, 2018. Comments Colorectal Carcinoma :Surgical Pathology Cancer Case Summary (Based on AJCC TNM 8 th edition) Procedure _x_ Partial colectomy Tumor Site _x_ Left (descending) colon: splenic flexure Tumor Size Greatest dimension (centimeters): 3.3 cm Macroscopic Tumor Perforation _x_ Not identified Histologic Type _x_ Adenocarcinoma Histologic Grade _x_ G2: Moderately differentiated Tumor Extension _x_ Tumor invades through the muscularis propria into pericolorectal tissue Margins _x_ All margins are uninvolved by invasive carcinoma, high-grade dysplasia, intramucosal adenocarcinoma, and adenoma Margins examined: mesenteric, proximal, and distal margin. Treatment Effect __x_ No known presurgical therapy Lymphovascular Invasion _x_ Not identified Perineural Invasion _x_ Present Tumor Deposits _x_ Not identified Regional Lymph Nodes Lymph Node Examination Number of Lymph Nodes Involved: 4 Number of Lymph Nodes Examined: 13 Pathologic Stage Classification (pTNM, AJCC 8th Edition) Primary Tumor (pT) _x_ pT3: Tumor invades through the muscularis propria into pericolorectal tissues Regional Lymph Nodes (pN) _x_ pN2: Four or more regional lymph nodes are positive Electronically Signed Yudelka Real M.D. Gross Description Received in formalin labeled "left colon splenic flexure," is a 16 cm in length portion of large bowel with 2 stapled mucosal margins and moderate attached pericolonic adipose tissue. The serosa is angel farfan with a focal stricture. Sectioning reveals a 3.3 x 2.6 cm angel, ulcerated mass in the area of the stricture. The mass is 5.5 cm from the closest mucosal margin of resection. The mass invades into the muscularis and to the serosa. No definite invasion into the pericolonic adipose tissue is identified grossly. The mass is 2 cm from the mesenteric margin of resection. The remaining mucosa is angel with normal folds. Sectioning of the pericolonic adipose tissue reveals multiple angel, irregular lymph nodes ranging from 0.2-1.0 cm in greatest dimension. Sealer Dry Cell sections are submitted in 18 cassettes as follows: 1-mucosal margin closest to mass; 2-opposing mucosal margin; 3-mesenteric margin of resection; 4-7-mass; 8-mass with surrounding normal mucosa; 9-uninvolved contact representative mucosa; 10-one whole trisected lymph node; 11-15-one whole bisected lymph node each; 16-two whole possible lymph nodes; 17-18-three whole possible lymph nodes each. 03/15/201803/15/2018
== END 2018-03-19 13:54 | disposition home or self-care (01) | DRG 221 ==
LOC: JSAMEDAYSX 13:18 → J6S 22:38 → EDSTATUS 03-15 13:00
PROVIDERS: ADMIT Surgery; ATTEND Surgery
PROC: 8E0W4CZ Robotic Assisted Procedure of Trunk Region, Percutaneous Endoscopic Approach (ICD-10-PCS; 2018-03-14)
PROC: 0DBG4ZZ Excision of Left Large Intestine, Percutaneous Endoscopic Approach (ICD-10-PCS; principal; 2018-03-14 14:30)
DX: C18.5 Malignant neoplasm of splenic flexure (principal); L89.151 Pressure ulcer of sacral region, stage 1; E87.6 Hypokalemia
CPT/HCPCS: 36415; 80048; 80053; 85025; 85027; 88307-TC; 94760; J0131; J1644

== ENCOUNTER 2019-05-08 11:46 | Day surgery (SDC) | payer OTHER ==
[2019-05-07 08:38] VITALS: BMI 22.1
[2019-05-08] MEDS ORDERED: BUPIVACAINE HCL/PF 0.5% (5MG/ML) 10 ML VIAL ONE (13:01)
--- NOTE | 2019-05-08 13:33 | HP ---
History & Physical Update - History History: No Change - Physical Physical: No Change - Assessment Assessment: No Change - Plan Plan: No Change
[2019-05-08] MEDS ORDERED: LIDOCAINE HCL/PF 2% SDV 5ML VIAL ONE (13:46)
[2019-05-08] MEDS ORDERED: PROPOFOL 20 ML ONE (13:46)
[2019-05-08] MEDS ORDERED: ROCURONIUM BROMIDE 50 MG/5 ML SYRINGE ONE (13:46)
[2019-05-08] MEDS ORDERED: MIDAZOLAM HCL 2 MG/2 ML SINGLE DOSE VIAL ONE (13:46)
[2019-05-08] MEDS ORDERED: ceFAZolin SODIUM 1 GM VIAL ONE (14:12)
[2019-05-08] MEDS ORDERED: ceFAZolin SODIUM 1 GM VIAL IVPB ONE (14:13)
[2019-05-08] MEDS ORDERED: BUPIVACAINE LIPOSOME/PF (EXPAREL) 266 MG/20 ML VIAL ONE (14:18)
[2019-05-08] MEDS ORDERED: BUPIVACAINE HCL/PF 0.25% (2.5MG/ML) 10 ML VIAL ONE (14:18)
[2019-05-08] MEDS ORDERED: KETOROLAC TROMETHAMINE 30 MG/1 ML VIAL ONE (14:27)
[2019-05-08] MEDS ORDERED: BUPIVACAINE LIPOSOME/PF (EXPAREL) 266 MG/20 ML VIAL IM ONE ×2 (14:39→15:20)
[2019-05-08] MEDS ORDERED: BUPIVACAINE HCL/PF 0.25% (2.5MG/ML) 10 ML VIAL IJ ONE ×2 (14:39→15:20)
[2019-05-08] MEDS ORDERED: GLYCOPYRROLATE 0.2 MG/1 ML VIAL ONE (15:15)
[2019-05-08] MEDS ORDERED: NEOSTIGMINE METHYLSULFATE 0.5 MG/ML - 10 ML MDV ONE (15:15)
--- NOTE | 2019-05-08 15:46 | OP ---
Operative Note - Note: Operative Date: 05/08/19 Pre-Operative Diagnosis: ventral hernia Operation: open retrorectus repair with mesh Findings: large incisional hernia Implants: progrip mesh [id number] cm Post-Operative Diagnosis: Same as Pre-op Surgeon: Daniel Cervantes Green Building Materials Designer: Leonora Pulliam Anesthesia: General Specimens Removed: hernia sac Estimated Blood Loss (mls): 15 Operative Report Dictated: Yes
[2019-05-08] MEDS ORDERED: ONDANSETRON 4 MG/2 ML VIAL IVPUSH PRN (15:54)
[2019-05-08] MEDS ORDERED: ACETAMINOPHEN INJECTION 100 ML IVPB ONE (16:01)
[2019-05-08] MEDS ORDERED: oxyCODONE HCL 5 MG TABLET PO PRN ×2 (16:10)
[2019-05-08] MEDS ORDERED: MORPHINE SULFATE 2 MG/ML VIAL IVPUSH PRN (16:10)
[2019-05-08] MEDS ORDERED: ACETAMINOPHEN 1000 MG/100 ML VIAL (NON FORMULARY) IVPB ONE (16:14)
[2019-05-08] MEDS: LACTATED RINGERS SOLUTION 1,000 ML IV SCH (17:30)
[2019-05-08] MEDS ORDERED: ATORVASTATIN CA 10 MG TABLET (FP) PO SCH (22:00)
[2019-05-09] MEDS: ACETAMINOPHEN 325 MG TABLET (FP) PO SCH ×3 (00:30→10:44)
[2019-05-09] MEDS: LACTATED RINGERS SOLUTION 1,000 ML IV SCH (03:00)
--- NOTE | 2019-05-09 08:22 | DS ---
Physical Exam: SUBJECTIVE: Patient seen and examined. C/o incisional tenderness. Adequate pain management with medications ordered. She's been OOB and ambulated with a assistance. Voiding spontaneously. Tolerating clear liquid diet. Denies n/v/f/c , CP, SOB, MUÑOZ. OBJECTIVE: Vital Signs Temperature 98.1 F 05/09/19 05:58 Pulse Rate 70 05/09/19 05:58 Respiratory Rate 18 05/09/19 05:58 Blood Pressure 106/63 05/09/19 05:58 O2 Sat by Pulse Oximetry (%) 99 05/08/19 21:00 PHYSICAL EXAM GENERAL: awake, alert, and fully oriented, in no acute distress. HEAD: Normal with no signs of trauma. NECK: Trachea midline, full range of motion, supple. ABD: dressing c/d/i. TRICE 20mL since surgery. LABS HOSPITAL COURSE: Date of Admission:05/08/19 Date of Discharge: 05/09/19 The patient was admitted to the Med-Surg Unit after an elective repair of their ventral hernia. Now, s/p open retrorectus repair ventral hernia with mesh 05/08. The day of surgery, the patient ambulated the hallways with RN assistance. Narcotic and non-narcotic pain management control was achieved with an oral and IV approach. POD #1, she tolerated clear liquids and was advanced to regular diet. Natalie-operative IV ABX were administered. DVT prophylaxis was achieved with SCDs and early ambulation. Narcotic scripts and or muscle relaxants were checked with [place] RA[employer]AD WORKER prior to escribe. The discharge instructions and an oral pain management plan were reviewed with the patient. You will be discharged home with your surgical drain , please empty and record your output in a journal...bring with you to your post -operative follow-up appointment. Please use your abdominal binder as discussed. All questions answered. Above plan discussed with Dr. Cervantes and agreed. Minutes to complete discharge: 35 Visit type - Case Type Case Type: Scheduled - New patient This patient is new to me today: Yes Date on this admission: 05/09/19
[2019-05-09] MEDS ORDERED: KETOROLAC TROMETHAMINE 15 MG/ML VIAL IVPUSH ONE (08:29)
[2019-05-09] MEDS ORDERED: PATIENT'S OWN MEDICATION (NON-FORMULARY) (Cetirizine Hcl 10 MG) PO SCH (10:00)
[2019-05-09] MEDS ORDERED: CHLORTHALIDONE 25 MG TABLET PO SCH (10:00)
[2019-05-09] MEDS ORDERED: FOLIC ACID 1 MG TABLET (FP) PO SCH (10:00)
[2019-05-09] MEDS ORDERED: LORATADINE 10 MG TABLET PO SCH (10:00)
[2019-05-09] MEDS ORDERED: LOVASTATIN 40 MG PO SCH (10:00)
[2019-05-09] MEDS ORDERED: PT OWN MED DRAWER 7, Y5N ONE (10:40)
--- NOTE | 2019-05-09 12:15 | OP ---
DATE OF OPERATION: 05/08/2019 PREOPERATIVE DIAGNOSIS: Ventral hernia, history of colon cancer. POSTOPERATIVE DIAGNOSIS: Ventral hernia, history of colon cancer. PROCEDURE: Open retrorectus repair of ventral hernia with mesh. IMPLANTS: ProGrip mesh, 15 x 30. SURGEON: Daniel Hastings MD VENEER SAMPLE MAKER: MICHAEL Cisneros COMPLICATIONS: None. BLOOD LOSS: Minimal. Patient tolerated the procedure well. DESCRIPTION OF PROCEDURE: This is a 63-year-old female status post a right colectomy for colon cancer for which she had an extraction which eventually developed a ventral hernia after chemotherapy, and the patient now presents for elective repair of ventral hernia. The incision was made approximately 10 cm and carried through subcutaneous tissues. The sac was dissected superficially with use of cautery to the edges of the fascia, and then the sac was entered without any evidence of intraabdominal adhesions. The sac was divided at the edge of the fascia and resected completely to the level of the umbilicus. At the present time the rectus posterior sheath was then from the rectus abdominis and releasing some of the branches of the inferior epigastric vessels with electrocautery, and this allowed on both sides of the tissue to come to the midline without any tension. The posterior layer was then closed with 0 PDS suture in interrupted fashion completely. Next, then the ProGrip mesh 15 x 30 was positioned in the retrorectus space. It was secured with several interrupted sutures to the posterior sheath, and then was done at this level. A Vinay-Aponte drain was placed in the retrorectus position, and the anterior layer was then closed with 0 PDS also in interrupted fashion. The subcutaneous tissues were reapproximated with 3-0 Vicryl sutures, and the skin was closed with galdino. Patient tolerated the procedure well. DANIEL HASTINGS M.D. [id number]
[2019-05-09 15:19] VITALS: BP 104/59; PULSE 79; TEMP 98.3
--- NOTE | 2019-05-10 18:33 | PATH ---
Surgical Pathology Report Patient Name: CARLITOS MERCER [facility]. Rec. #: [id number] /Age/Gender: 1955 (Age: 63) / F Account: [id number] Location: AMBULATORY SURG Taken: 05/08/2019 Received: 05/09/2019 Reported: 05/10/2019 Physicians: Daniel Cervantes M.D. Specimen(s) Received VENTRAL HERNIA SAC Clinical History Ventral hernia without obstruction or gangrene Final Diagnosis VENTRAL HERNIA SAC, EXCISION: CONSISTENT WITH HERNIA SAC. Electronically Signed Yudelka Real M.D. Gross Description Received in formalin labeled "ventral hernia sac," is a 9.0 x 9.0 x 0.6 cm angel-farfan portion of fibromembranous tissue with attached fat, consistent with a hernia sac. Ball Maker sections are submitted in one cassette. /05/09/2019 saudi/05/09/2019
== END 2019-05-09 17:53 | disposition home or self-care (01) ==
LOC: JASUSAT 11:46 → JASU-SURG 11:46 → J6S 18:12 → JASUSAT 05-09 17:52
PROVIDERS: ATTEND Surgery
PROC: 0WUF0JZ Supplement Abdominal Wall with Synthetic Substitute, Open Approach (ICD-10-PCS; principal; 2019-05-08 13:00)
DX: K43.9 Ventral hernia without obstruction or gangrene (principal); Z85.038 Personal history of other malignant neoplasm of large intestine
CPT/HCPCS: 88302-TC; 94760; J0131

== ENCOUNTER 2019-06-03 19:11 | Emergency (ER) | payer OTHER ==
[2019-06-03 19:27] VITALS: BP 120/72; PULSE 85; TEMP 98.3; BMI 21.9
--- NOTE | 2019-06-03 21:09 | PDOC ---
History of Present Illness - General Chief Complaint: Revisit,Wound Recheck Stated Complaint: POST OP SUTURE REMOVAL Time Seen by Provider: 06/03/19 20:57 - History of Present Illness Initial Comments: 06/03/19 21:07 63-year-old female presents for evaluation and wound check of a hernia repair that was done. She states she had galdino taken out of her abdomen 2 weeks ago however she feels there is a retained staple and there is some drainage from the wound. Past History - Past Medical History Allergies/Adverse Reactions: Allergies Allergy/AdvReac Type Severity Reaction Status Date / Time No Known Allergies Allergy Verified 06/03/19 19:27 Home Medications: Ambulatory Orders Ascorbate Calcium [Vitamin C] 500 mg PO DAILY 03/12/18 Chlorthalidone [Hygroton -] 25 mg PO DAILY 03/14/18 Lovastatin [Altoprev] 40 mg PO DAILY 03/14/18 Acetaminophen [Tylenol .Extra-Strength -] 500 mg PO Q4H PRN 05/07/19 Cetirizine HCl [Zyrtec -] 10 mg PO DAILY 05/07/19 Folic Acid 1 mg PO DAILY 05/07/19 Ibuprofen 400 mg PO PRN PRN 05/07/19 Cephalexin [Keflex] 500 mg PO TID #42 capsule 05/09/19 Fluconazole [Diflucan] 150 mg PO ONCE #2 tablet 05/09/19 oxyCODONE HCL [Roxicodone -] 5 mg PO Q4H PRN #30 tablet MDD 6 05/09/19 Anemia: Yes (10/2018) Asthma: Yes Cancer: Yes (COLON CANCER 2017) Cardiac Disorders: No CVA: No COPD: No CHF: No Dementia: No Diabetes: No GI Disorders: No Disorders: No HTN: Yes Hypercholesterolemia: Yes Liver Disease: No Seizures: No Thyroid Disease: No - Surgical History Abdominal Surgery: Yes (hernia repair) - Suicide/Smoking/Psychosocial Hx Smoking History: Never smoked Have you smoked in the past 12 months: No Hx Alcohol Use: No Drug/Substance Use Hx: No Substance Use Type: None Review of Systems - Review of Systems Constitutional: No: Fever *Physical Exam - Vital Signs Last Vital Signs Temp Pulse Resp BP Pulse Ox 98.3 F 85 18 120/72 99 06/03/19 19:25 06/03/19 19:25 06/03/19 19:25 06/03/19 19:25 06/03/19 19:25 - Physical Exam Comments: 06/03/19 21:08 Incision about the abdomen is well-healed. There appears to be a retained staple at the proximal aspect of the wound however it is covered by eschar and I am unsure if this is a staple versus a and exposed part of Vicryl I will defer this to the operating surgeon. There is a small area of serous drainage from the distal aspect of the wound covered by a Band-Aid. The Band-Aid was removed there is no indication of infection. Medical Decision Making - Medical Decision Making 06/03/19 21:08 I will do nothing and her for this patient back to her operating surgeon. *DC/Admit/Observation/Transfer Diagnosis at time of Disposition: Visit for wound check - Referrals Referrals: Daniela Forrest MD [Primary Care Provider] - - Patient Instructions Additional Instructions: Return to the operating surgeon in one to 2 days without fail for further evaluation and treatment options. Return to the emergency room for further issues. - Post Discharge Activity
== END 2019-06-03 21:14 | disposition home or self-care (01) ==
LOC: JERFT 19:11
DX: Z48.01 Encounter for change or removal of surgical wound dressing (principal)
CPT/HCPCS: 99281-25

== ENCOUNTER 2019-07-12 18:09 | Emergency (ER) | payer OTHER ==
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
[2019-07-12 18:33] VITALS: BP 129/79; PULSE 93; TEMP 97.5; BMI 19.3
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
== END 2019-07-12 21:22 | disposition home or self-care (01) ==
LOC: JERFT 18:09
DX: M54.5 Low back pain (principal); V49.59XA Passenger injured in collision with other motor vehicles in traffic accident, initial encounter; Y92.414 Local residential or business street as the place of occurrence of the external cause; Y93.89 Activity, other specified; Y99.8 Other external cause status; I10 Essential (primary) hypertension; E78.00 Pure hypercholesterolemia, unspecified; J45.909 Unspecified asthma, uncomplicated; D64.9 Anemia, unspecified
CPT/HCPCS: 72131-TC; 99281-25

== ENCOUNTER 2022-07-01 14:21 | Emergency (ER) | payer OTHER ==
[2022-07-01 14:56] VITALS: BP 129/74; PULSE 91; RESP 20; TEMP 98.2; BMI 24.2
[2022-07-01] MEDS ORDERED: DIPHTH,PERTUSS(ACELL),TET 0.5 ML DISP.SYRIN IM ONE ×2 (16:48→17:02)
== END 2022-07-01 17:56 | disposition home or self-care (01) ==
LOC: JERFT 14:21 → JER 14:21 → JERFT 17:56
PROC: 0HQGXZZ Repair Left Hand Skin, External Approach (ICD-10-PCS; principal; 2022-07-01)
PROC: 3E0234Z Introduction of Serum, Toxoid and Vaccine into Muscle, Percutaneous Approach (ICD-10-PCS; 2022-07-01)
DX: S61.012A Laceration without foreign body of left thumb without damage to nail, initial encounter (principal)
CPT/HCPCS: 12001-25; 90471; 90715; 99284-25

== ENCOUNTER 2022-07-11 14:07 | Emergency (ER) | payer OTHER ==
[2022-07-11 14:32] VITALS: BP 127/67; PULSE 77; RESP 17; TEMP 97.9; BMI 21.7
== END 2022-07-11 16:03 | disposition home or self-care (01) ==
LOC: JERFT 14:07
DX: Z48.02 Encounter for removal of sutures (principal)
CPT/HCPCS: 99281-25